=== PATIENT | female | born 1960 | race Caucasian/White ===

== ENCOUNTER 2017-02-18 18:16 | Emergency (ER) | payer OTHER ==
[~2017-02-18] VITALS: Ht 162.6 cm; Wt 56.0 kg
[~2017-02-18 18:16] MED LIST: BUPR100T14 PO; HYDR-3011 PO; TEMA15CA PO; TRAM50TA2 PO
[2017-02-18 18:31] VITALS: Ht 162.6 cm; Wt 56.0 kg
--- NOTE | 2017-02-18 19:25 | RADRPT ---
PROCEDURE: US Lower extremity Venous. CLINICAL INDICATION: Rule out DVT TECHNIQUE: Multiple sonographic images of the right lower extremity deep venous system was obtaine d utilizing grayscale, color-flow, compressive sonography and doppler imaging with augmentation. Th e images were reviewed on a PACS workstation. COMPARISON: None. FINDINGS: There is normal compressibility and flow within the right common femoral, deep femoral, superficial femoral and popliteal veins. The deep veins the calf were incompletely visualized. Subcutaneous edema in the right calf and right thigh is present. IMPRESSION: No sonographic evidence for deep venous thrombosis in the right lower extremity. Subcutaneous edema in the right calf and right thigh is present. Physician Robby Date Time Electronically viewed and signed by Physician Robby on 02/18/2017 19:25 ML/
[2017-02-18 19:27] LABS: ADD SCAN DIFF NO
[2017-02-18 19:28] LABS: BASOPHIL # 0.1 10^3/ul (0.0-0.1); BASOPHILS % 0.9 % (0.0-2.0); EOSINOPHILS # 0.1 10^3/ul (0.0-0.5); HEMATOCRIT 40.7 % (37.0-47.0); HEMOGLOBIN 13.4 g/dl (12.0-16.0); LYMPHOCYTES # 1.8 10^3/ul (0.8-2.9); LYMPHOCYTES % 27.1 % (15.0-51.0); MEAN CORPUSCULAR HEMOGLOBIN 29.7 pg (29.0-33.0); MEAN CORPUSCULAR HGB CONC 32.9 g/dl (32.0-37.0); MEAN CORPUSCULAR VOLUME 90.2 fl (82.0-101.0); MEAN PLATELET VOLUME 10.1 fl (7.4-10.4); MONOCYTE # 0.4 10^3/ul (0.3-0.9); MONOCYTES % 6.6 % (0.0-11.0); NEUTROPHIL # 4.3 10^3/ul (1.6-7.5); NEUTROPHILS % 64.3 % (39.0-77.0); PLATELET COUNT 172 10^3/UL (140-415); RED BLOOD COUNT 4.51 10^6/ul (4.20-5.40); RED CELL DISTRIBUTION WIDTH 13.4 % (11.5-14.5); WHITE BLOOD COUNT 6.7 10^3/ul (4.8-10.8)
[2017-02-18] MEDS ORDERED: TRAZ100T15 PO (19:40)
[2017-02-18 19:45] LABS: INR 0.96; PROTIME 12.8 Sec (12.2-14.2)
--- NOTE | 2017-02-18 19:45 | ERD ---
ER Documentation Chief Complaint Date/Time DATE: 02/18/17 TIME: 19:42 Chief Complaint swelling of right lower extremity HPI This is a 36-year-old female with history of hypertension, and chronic lymphedema of the left lower extremity presents to the emergency room for evaluation of pain in her right foot. The patient states that she noticed some swelling in the right foot. She denies any trauma to the area, denies any recent travel or numbness or tingling. She came to the ER for evaluation. The patient is also denying any fevers associated with this pain in her foot. She states that she is able to ambulate ROS All systems reviewed and are negative except as per history of present illness. Medications Home Meds Reported Medications Trazodone Hcl* (Trazodone Hcl*) 100 Mg Tablet, 100 MG PO QHS, #30 TAB 02/18/17 Discontinued Reported Medications Bupropion Hcl* (Bupropion Hcl*) 100 Mg Tablet, 100 MG PO QAM, TAB 03/09/15 Hydroxyzine Hcl* (Hydroxyzine Hcl*) 25 Mg Tablet, 25 MG PO DAILY, TAB 12/25/14 Temazepam* (Temazepam*) 15 Mg Capsule, 15 MG PO HS Y for INSOMNIA, CAP 12/25/14 Discontinued Scripts Tramadol HCl (Tramadol HCl) 50 Mg Tab, 50 MG PO Q6 Y for PAIN, #20 TAB Prov:STEPHANIE SHEETS MD 03/09/15 Allergies Allergies: Coded Allergies: No Known Allergy (Unverified , 12/25/14) PMhx/Soc History of Surgery: Yes (Hysterectomy Colostomy) Anesthesia Reaction: No Hx Neurological Disorder: No Hx Respiratory Disorders: No Hx Cardiac Disorders: No Hx Psychiatric Problems: No Hx Miscellaneous Medical Probl: Yes (Cervical CA) Hx Alcohol Use: No Hx Substance Use: No Hx Tobacco Use: Yes Smoking Status: Current every day smoker Physical Exam Vitals Vital Signs Date Time Temp Pulse Resp B/P Pulse Ox O2 Delivery O2 Flow Rate FiO2 02/18/17 18:31 97.7 76 20 147/67 99 Physical Exam Const: No acute distress Head: Atraumatic Eyes: Normal Conjunctiva ENT: Normal External Ears, Nose and Mouth. Neck: Full range of motion..~ No meningismus. Resp: Clear to auscultation bilaterally Cardio: Regular rate and rhythm, no murmurs Abd: Soft, non tender, non distended. Normal bowel sounds Skin: No petechiae or rashes Back: No midline or flank tenderness Ext: Lymphedema of the left lower extremity, right lower extremity with 1+ pitting edema small area of erythema over the dorsal aspect of the right forefoot, no skin sloughing, no limitations in range of motion, cap refill less than 2 seconds in the foot, posterior tibial and dorsalis pedis pulse equal and present bilaterally Neur: Awake and alert Psych: Normal Mood and Affect Result Diagram: 02/18/171922 Results 24 hrs Laboratory Tests Test 02/18/17 19:23 White Blood Count 6.710^3/ul Red Blood Count 4.5110^6/ul Hemoglobin 13.4g/dl Hematocrit 40.7% Mean Corpuscular Volume 90.2fl Mean Corpuscular Hemoglobin 29.7pg Mean Corpuscular Hemoglobin Concent 32.9g/dl Red Cell Distribution Width 13.4% Platelet Count 25063^3/UL Mean Platelet Volume 10.1fl Neutrophils % 64.3% Lymphocytes % 27.1% Monocytes % 6.6% Eosinophils % 1.0% Basophils % 0.9% Nucleated Red Blood Cells % 0.0/100WBC Neutrophils # 4.310^3/ul Lymphocytes # 1.810^3/ul Monocytes # 0.410^3/ul Eosinophils # 0.110^3/ul Basophils # 0.110^3/ul Nucleated Red Blood Cells # 0.010^3/ul Procedures/MDM Ultrasound left lower extremity : No DVT This 56-year-old female presents to the ER for evaluation of right foot pain. When I evaluated this patient she did have chronic lymphedema of the left lower extremity, and I did note some mild edema of the right lower extremity. Ultrasound was obtained which does not show any sonographic evidence for DVT. The patient does have subcutaneous edema. The patient had superficial cellulitis on the foot and will be discharged home at this time with a prescription for Bactrim and Keflex. This patient is able to ambulate and has no signs of systemic infection at this time Departure Diagnosis: Primary Impression: Cellulitis of right foot Condition: Stable LEATHA CHAVEZ DO Feb 18, 2017 19:45
[2017-02-18 19:46] LABS: CALCIUM 9.3 mg/dl (8.4-10.2); CREATININE 0.85 mg/dl (0.44-1.00); PARTIAL THROMBOPLASTIN TIME 27.6 Sec (25.0-35.0); POTASSIUM 3.6 mmol/L (3.5-5.1)
[2017-02-18] MEDS ORDERED: SULF1TAB31 PO (19:46)
[2017-02-18] MEDS ORDERED: DOXY100T20 PO (19:46)
[2017-02-18] MEDS ORDERED: traMADol 50 MG TAB PO ONE (20:00)
[2017-02-18 20:20] VITALS: BP 133/84; PULSE 86; RESP 20; TEMP 98
== END 2017-02-18 20:21 | disposition home or self-care (01) ==
LOC: E/R 18:16
DX: L03.115 Cellulitis of right lower limb (principal); F17.210 Nicotine dependence, cigarettes, uncomplicated; I10 Essential (primary) hypertension; Z85.41 Personal history of malignant neoplasm of cervix uteri
CPT/HCPCS: 80048; 85025; 85610; 85730; 93971; Z7502; Z7610; 99284